=== PATIENT | female | born 1975 | race Caucasian/White ===

== ENCOUNTER 2019-01-24 17:45 | Emergency (ER) | payer OTHER ==
[~2019-01-24] VITALS: Ht 157.5 cm; Wt 66.2 kg
[~2019-01-24 17:45] MED LIST: ACID CONTROL20 MG; APAP500; DERMOPLAST SPRA56 ML; HYDROCORTISONE30 G9; IBUPROFEN 600600 M1; IBUPROFEN 600600 M1 PO; IRON; IRON325; LANOLIN56 GM; MACROBID 100 M100 M1 PO; NORCO 5-325 TA1 EACH; NORCO 5-325 TA1 EACH PO; PREDNISONE 20 M20 MG PO; PRENATAL; PRENATAL MULTI1 EAC2; REFLUX MEDICATION; SENNA; TUCKS MEDICATE1 EAC1; VALIUM2 MG PO; ZPAK PO
[2019-01-24 18:23] LABS: ABSOLUTE NEUTROPHILS 7.2 thou/uL (1.4-8.2); BASOPHILS 0.2 % (0.0-2.0); EOSINOPHILS 2.7 % (0.0-3.0); HEMATOCRIT 36.2 % (37.0-47.0); HEMOGLOBIN 12.4 gm/dL (12.0-15.0); LYMPHOCYTES 11.6 % (24.0-44.0); MCH 29.9 pg (26.0-34.0); MCHC 34.2 g/dL (28.0-37.0); MCV 87.4 fL (80.0-100.0); MONOCYTES 7.9 % (1.0-8.0); PLATELET COUNT 292 thou/uL (150-400); POLYS 77.6 % (36.0-66.0); RBC 4.14 mil/uL (4.20-5.00); RDW 12.8 % (10.5-14.5); WBC 9.3 thou/uL (4.0-11.0)
[2019-01-24 18:34] LABS: CALCIUM 8.9 mg/dL (8.5-10.1); CREATININE 0.8 mg/dL (0.6-1.0)
[2019-01-24 18:40] LABS: ALBUMIN 3.9 g/dL (3.4-5.0); TOTAL BILIRUBIN 0.5 mg/dL (<0.1-1.0); TOTAL PROTEIN 7.4 g/dL (6.4-8.2)
[2019-01-24] MEDS ORDERED: PHENERGAN 25 MG25 M1 PO (19:43)
[2019-01-24] MEDS ORDERED: BENTYL 20 MG TA20 M1 PO (19:43)
[2019-01-24] MEDS ORDERED: EFFEXOR XR37.5 MG PO (19:46)
[2019-01-24] MEDS ORDERED: ABILIFY10 MG PO (19:46)
[2019-01-24 20:36] VITALS: BP 109/70
== END 2019-01-24 20:36 | disposition home or self-care (01) ==
LOC: ER 17:45
PROVIDERS: Physician Assistant
DX: R10.13 Epigastric pain (principal); R11.2 Nausea with vomiting, unspecified; Z87.891 Personal history of nicotine dependence